=== PATIENT | female | born 1945 | race Caucasian/White ===

== ENCOUNTER 2016-12-11 05:36 | Inpatient (IN) | payer OTHER ==
[2016-11-29 15:41] LABS: URINE BILIRUBIN NEGATIVE (Negative); URINE BLOOD NEGATIVE (Negative); URINE COLOR YELLOW; URINE GLUCOSE-RANDOM* NEGATIVE (Negative); URINE KETONES NEGATIVE (Negative); URINE LEUKOCYTES-REFLEX NEGATIVE (Negative); URINE PROTEIN (DIPSTICK) NEGATIVE (Negative); URINE UROBILINOGEN 0.2 E.U./dl (0.2-1.0)
[2016-11-29 15:44] LABS: HEMATOCRIT 40.9 % (37.0-47.0); HEMOGLOBIN 13.5 gm/dL (12.0-15.0); MCH 28.3 pg (26.0-34.0); MCV 85.9 fL (80.0-100.0); RBC 4.76 mil/uL (4.20-5.00); RDW 14.1 % (10.5-14.5); WBC 9.5 thou/uL (4.0-11.0)
[2016-11-29 15:52] LABS: ALBUMIN 3.5 g/dL (3.4-5.0); CREATININE 0.6 mg/dL (0.6-1.0)
[2016-11-29 15:54] LABS: PROTIME 10.5 Seconds (9.3-11.4)
[2016-12-11] VITALS (10 sets, daily range): BP systolic 113–136; BP diastolic 44–60
[~2016-12-11] VITALS: Ht 167.6 cm; Wt 97.1 kg
--- NOTE | ~2016-12-11 | O ---
[facility] [place] [address] OPERATIVE REPORT Name: ROSA DELGADO Room #: 537-P [facility] IN M.R.#: [id number] Admission: 12/11/16 Attend Phys: Edwin Ortez MD Discharge: Date of : 41 Report #: [id number] THIS REPORT FOR: //name// CC: Edwin Ortez Dania Bernal DATE OF SERVICE: 12/11/2016 PREOPERATIVE DIAGNOSIS: End-stage degenerative arthritis, left knee. POSTOPERATIVE DIAGNOSIS: End-stage degenerative arthritis, left knee. PROCEDURE: Left total knee arthroplasty. SURGEON: Edwin Ortez MD INDICATIONS: This 71-year-old female has problems with moderate degenerative arthritis in multiple areas. She underwent a previous right total knee arthroplasty with good result. She also has a history of degenerative lumbar spondylosis, requiring decompression for spinal stenosis with satisfactory result. She now has progressive left knee pain, although the x-rays revealed only moderate radiographic changes. She does have rather significant crepitus, swelling and pain consistent with moderately severe degenerative arthritis primarily in the medial compartment, there is only minor varus malalignment. We discussed treatment options and elected to go ahead with left total knee replacement. DESCRIPTION OF PROCEDURE: The patient was taken to the operating room where she was placed under general anesthesia. Prophylactic intravenous antibiotics were administered. The left knee and leg were meticulously prepped and draped and a thigh tourniquet was inflated to 300 mmHg. An anterior longitudinal skin incision was made and carried through the medial retinaculum. The patella was reflected laterally. Moderately severe degenerative change in all 3 compartments was noted. The DePuy PFC knee system was utilized. Intramedullary guides were used on both the femur and the tibia. The femur was cut in 5 degrees of valgus and the tibia was cut perpendicular to long axis of the bone. The patellar surface was resected using a patellar cutting guide. The femur seemed best suited for a size 3 femoral component. The tibia was also nicely suited for a size 3 tibial component. An 8-mm polyethylene insert resulted in good stability and satisfactory range of motion with full knee extension and flexion beyond 135 degrees. Alignment appeared to be satisfactory. The patella was best suited for a 35-mm patellar button. The patella tracked nicely following a rather limited lateral retinacular release. The trial components were removed. The intramedullary canal was blocked with bone block on both the femur and the tibia. The surfaces were thoroughly irrigated and dried. Methylmethacrylate was mixed and injected into the porous surface of the [address] [address] OPERATIVE REPORT Name: ROSA DELGADO Room #: 537-P [facility] IN ..#: [id number] Admission: 12/11/16 Attend Phys: Edwin Ortez MD Discharge: Date of : 41 Report #: [id number] proximal tibia. The DePuy PFC size 3 tibial component was impacted into the tibia and seated nicely and appeared to be secure. An 8-mm polyethylene insert was then applied and snapped into place, it seated nicely and appeared to be secure. A size 3 left femoral component was impacted on the distal femur. A small amount of cement was used at the anchor holes as the bone was slightly soft. The component seemed to seat nicely and appeared to be secure. A size 35-mm patellar button was cemented into place using appropriate anchor holes and the patella was secured with a patellar clamp until the cement had fully hardened. All excess cement was removed from around the margin of the components. Once the cement had hardened, alignment, range of motion and stability were assessed again and felt to be satisfactory. The patella seemed now to track nicely and appeared to be stable. A single Hemovac was left in the wound exiting through a separate stab incision. The tourniquet was then deflated after a total tourniquet time of 47 minutes. The fascia was closed with multiple #1 Vicryl sutures. Subcutaneous tissues were closed with 0 Monocryl. The skin was closed with skin unruly. A sterile dressing was applied. The patient was then awakened and returned to recovery room in good condition. <ELECTRONICALLY SIGNED> By: Edwin Ortez MD 12/13/16 1643 1117 1146 Edwin Ortez MD /nt
--- NOTE | ~2016-12-11 | H ---
[facility] [place] [address] HISTORY AND PHYSICAL Name: ROSA DELGADO Room #: 537-P ADM IN M.R.#: [id number] Admission: 12/11/16 Attend Phys: Edwin Ortez MD Discharge: Date of : 41 Report #: [id number] THIS REPORT FOR: //name// For History and Physical, please see office documentation/handwritten note in the patient's medical record. <ELECTRONICALLY SIGNED> By: Edwin Ortez MD 12/14/16 1208 1146 Edwin Ortez MD /
--- NOTE | ~2016-12-11 | D ---
[facility] [place] [address] DISCHARGE SUMMARY Name: ROSA DELGADO Room #: 537-P [facility] IN M.R.#: [id number] Admission: 12/11/16 Attend Phys: Edwin Ortez MD Discharge: Date of : 41 Report #: [id number] THIS REPORT FOR: //name// CC: Edwin Bernal FINAL DIAGNOSIS: End-stage degenerative arthritis, left knee. OPERATIONS AND PROCEDURES: Left total knee arthroplasty. HISTORY OF PRESENT ILLNESS: This active, independent 71-year-old female has had problems with bilateral knee arthritis. She is admitted at this time for left total knee arthroplasty. HOSPITAL COURSE: She was admitted and taken to the operating room on December 11. She underwent left total knee arthroplasty, which she tolerated well. Postoperatively, her course is largely unremarkable. She was able to gradually advance with physical therapy and has made good progress, but is not yet fully independent with her walker or on stairs. I do not think she is ready to be home independently where she has limited help. We have elected to go ahead with temporary assistance at [facility]. DISCHARGE MEDICATIONS: Include Xarelto 10 mg daily, calcium and vitamin D ____ mg daily, ferrous sulfate 325 mg daily, hydrocodone 7.5/325 one q. 4-6 hours p.r.n. for pain. She will continue a gradually advancing activity program with physical therapy assistance, working on range of motion and strength and ambulation with a walker with limited use of stairs as tolerated. I have asked the patient and facility to call me next week to report her progress. I would anticipate 5-7 days of assistance there and then probably home with some visiting therapy, gradually advancing to outpatient therapy. I will plan to see her back in my office at 2 weeks for followup and suture removal. By: 1156 1303 Edwin Ortez MD /nt
[~2016-12-11 05:36] MED LIST: ALEVE220 M1 PO; ALEVE220 MG PO; CALCIUM 600 +1 EAC1 PO; GABAPENTIN 100100 MG PO; HYDROCODON-ACE1 EAC7; HYDROCODONE-AP1 EAC6 PO; IRBESARTAN75 MG PO; IRON325 PO; METHOCARBAMOL750 MG; MOBIC15 MG PO; MOBIC7.5 MG PO; MULTIVITAMINS1 EAC7 PO; NEURONTIN 300300 M1 PO; OCUVITE ADULT1 EACH PO; OCUVITE SOFTGE1 EAC1 PO; OCUVITE TABLET1 EAC1 PO; OMEGA 3-6-9 CO1 EACH PO; OSTEO BI-FLEX1 EAC1 PO; PERCOCET PO; PRESERVISION T1 EACH PO; TRAMADOL 50 MG50 MG PO; VITAMIN D1000 UNI1 PO; VITAMIN E400 UNI6 PO
[2016-12-12 03:17] VITALS: BP 118/45
[2016-12-12 05:49] LABS: HEMATOCRIT 33.6 % (37.0-47.0); HEMOGLOBIN 11.5 gm/dL (12.0-15.0); MCHC 34.1 g/dL (28.0-37.0); RBC 3.95 mil/uL (4.20-5.00); RDW 13.4 % (10.5-14.5); WBC 10.9 thou/uL (4.0-11.0)
[2016-12-12 06:12] LABS: CALCIUM 8.7 mg/dL (8.5-10.1); CREATININE 0.9 mg/dL (0.6-1.0); MAGNESIUM 1.6 mg/dL (1.8-2.4); POTASSIUM 3.8 mmol/L (3.5-5.1); TOTAL BILIRUBIN 0.5 mg/dL (<0.1-1.0); TOTAL PROTEIN 6.3 g/dL (6.4-8.2)
[2016-12-12 07:37] VITALS: BP 113/53
[2016-12-12 15:05] VITALS: BP 115/52
[2016-12-12 20:00] VITALS: BP 114/49
[2016-12-13 03:45] VITALS: BP 135/55
[2016-12-13 08:17] LABS: HEMOGLOBIN 10.3 gm/dL (12.0-15.0); MCH 28.9 pg (26.0-34.0); MCHC 34.4 g/dL (28.0-37.0); MCV 84.1 fL (80.0-100.0); RBC 3.57 mil/uL (4.20-5.00); RDW 13.8 % (10.5-14.5); WBC 8.5 thou/uL (4.0-11.0)
[2016-12-13 08:20] VITALS: BP 136/63
[2016-12-13 16:00] VITALS: BP 123/53
[2016-12-13 20:11] VITALS: BP 130/55
[2016-12-14 06:14] VITALS: BP 123/50
[2016-12-14 06:14] LABS: HEMATOCRIT 28.9 % (37.0-47.0); MCH 29.2 pg (26.0-34.0); MCHC 34.5 g/dL (28.0-37.0); MCV 84.7 fL (80.0-100.0); RBC 3.42 mil/uL (4.20-5.00); RDW 13.8 % (10.5-14.5); WBC 8.6 thou/uL (4.0-11.0)
[2016-12-14 07:30] VITALS: BP 134/52
[2016-12-14] MEDS ORDERED: HYDROCODONE-APA1 TA1 PO (11:36)
[2016-12-14] MEDS ORDERED: XARELTO10 MG PO (11:37)
== END 2016-12-14 16:56 | DRG 470 ==
LOC: TBA 05:36 → 5S 05:36 → PRE 09:29 → 5S 12:36 → PRE 13:35 → 5S 12-14 16:56
PROVIDERS: Nurse Practitioner; Orthopaedic Surgery
PROC: 0SRD0J9 Replacement of Left Knee Joint with Synthetic Substitute, Cemented, Open Approach (ICD-10-PCS; principal; 2016-12-11)
DX: M17.12 Unilateral primary osteoarthritis, left knee (principal); M47.816 Spondylosis without myelopathy or radiculopathy, lumbar region; M94.262 Chondromalacia, left knee; M48.06 Spinal stenosis, lumbar region; Z90.710 Acquired absence of both cervix and uterus; Z90.49 Acquired absence of other specified parts of digestive tract; Z85.9 Personal history of malignant neoplasm, unspecified
CPT/HCPCS: 10785; 50010; 50101; 50415; 50954; 51130; 51225; 51412; 51771; 53000; 53364; 56525; 62110; 62900; 70005